=== PATIENT | male | born 1985 ===

== ENCOUNTER 2017-09-25 17:36 | Inpatient (IN) | payer SELFPAY ==
[~2017-09-25 17:36] MED LIST: ISOVUE-370 76%-LOCM 1 ML ONE
[2017-09-25] MEDS ORDERED: Morphine 4 MG/ML Carpuject ONE ×2 (18:27→18:48)
[2017-09-25] MEDS ORDERED: Ondansetron HCl/PF 4 MG/2 ML Vial ONE (18:27)
--- NOTE | 2017-09-25 18:58 | RAD ---
PORTABLE CHEST ONE VIEW 09/25/17 at 5:16 p.m. HISTORY: Fall. FINDINGS/IMPRESSION: The heart size is normal. The lungs are expanded without focal areas of consolidation, pneumothoraces or pleural effusions. There is a right cervical rib. POS: [facility]
--- NOTE | 2017-09-25 19:06 | CT ---
CT BRAIN WITHOUT CONTRAST 09/25/17 HISTORY: Level II trauma. Headache. FINDINGS: No evidence of acute infarct, hemorrhage, midline shift or abnormal extra-axial fluid collections see n. The ventricular size is normal and the basilar cisterns patent. The bony calvarium is intact. The visualized paranasal sinuses and mastoid air cells are well aerated. There is a focal area of tiny ca lcifications in the right frontal lobe. Underlying mass cannot be excluded. This should be evaluated with a contrast enhanced MRI. IMPRESSION: 1. No CT evidence of acute intracranial process. 2. Further evaluation with MRI is recommended to evaluate the right frontal lobe findings. Report was called over the telephone to ER physician, Dr. Haven Grullon at 6:18 p.m. POS: [facility]
--- NOTE | 2017-09-25 19:08 | CT ---
CT CERVICAL SPINE WITH CORONAL AND SAGITTAL REFORMATIONS: 09/25/17 HISTORY: Level II trauma, neck pain. FINDINGS/IMPRESSION: There is loss of the cervical lordosis with straightening of the cervical spine. No acute fracture or subluxation is identified. POS: [facility]
[2017-09-25 19:11] LABS: #Eosinphils 0.2 thou/uL (0.0-0.7); #Lymphocytes 3.5 thou/uL (1.20-3.40); #Monocytes 0.5 thou/uL (0.11-0.59); %Basophils 0.2 % (0.0-1.0); %Eosinophils 1.5 % (0.0-10.0); %Lymphocytes 22.7 % (21.0-51.0); %Monocytes 3.2 % (0.0-10.0); %Neutrophils 72.4 % (42.0-75.0); Hemoglobin 16.2 g/dL (14.0-18.0); Mean Corpuscular HGB CONC 33.8 g/dL (32.0-36.0); Mean Corpuscular Volume 88.8 fl (80.0-94.0); Mean Platelet Volume 7.1 fL (7.4-10.4); Platelet Count 306 thou/uL (130-400); RBC Distribution Width 11.8 % (11.5-14.5); Red Blood Cell (RBC) Count 5.41 mill/uL (4.70-6.10); White Blood Cell (WBC) Count 15.2 thou/uL (4.8-10.8)
[2017-09-25 19:14] LABS: Bilirubin Negative (Negative); Blood, Urine Negative (Negative); Clarity CLEAR (Clear); Glucose, Urine (Dipstick) Negative (Negative); Leukocyte Negative (Negative); Nitrite Negative (Negative); Protein, Urine (Dipstick) Negative (Neg-Trace); Specific Gravity, Urine 1.024 (1.002-1.036); Urobilinogen 0.2 mg/dL (0.2-1.0); pH, Urine 6.5 (5.0-9.0)
[2017-09-25 19:18] LABS: Prothrombin Time 13.6 SEC (12.0-14.7)
[2017-09-25 19:24] LABS: ALT (SGPT) 43 U/L (8-55); AST (SGOT) 34 U/L (5-34); Albumin 4.2 g/dL (3.5-5.0); Alcohol Less than 10 mg/dL (Less than 10); Alkaline Phosphatase 109 U/L (40-150); Anion Gap 19 mmol/L (10-20); BUN (Urea Nitrogen) 14 mg/dL (8.9-20.6); Bilirubin, Total 0.6 mg/dL (0.2-1.2); Calc. Creatinine Clearance 0 mL/min (70-130); Calcium 9.5 mg/dL (7.8-10.44); Carbon Dioxide 18 mmol/L (22-29); Chloride 105 mmol/L (98-107); Estimated GFR-MDRD Greater than 90; Glucose 108 mg/dL (70-105); Lipase 27 U/L (8-78); Potassium 3.8 mmol/L (3.5-5.1); Protein, Total 8.2 g/dL (6.0-8.3); Sodium 138 mmol/L (136-145)
[2017-09-25] MEDS ORDERED: Adacel (T-DAP) 0.5 ML VIAL ONE (19:30)
--- NOTE | 2017-09-25 19:32 | CT ---
CT FACIAL BONES WITH CORONAL AND SAGITTAL REFORMATIONS: 09/25/17 HISTORY: Fall. Mandibular pain. FINDINGS: There is are multiple mandibular fractures. These include the right c ondylar neck. The right mandibular condyle is medially displaced and medially dislocated from the tem poromandibular joint space. On the left side, there is a ramus fracture with medial displacement of t he distal/inferior fragment. There is a displaced fracture involving left parasymphyseal region. Ther e is overlapping of the fracture fragments of the anterior aspect of the mandible. The remainder of the facial bones are otherwise intact. No air fluid levels are seen in the paranasal sinuses. IMPRESSION: Multiple mandibular fractures as discussed above. Discussed over the telephone with ER physician, Dr. Haven Grullon at 6:36 p.m. POS: [facility]
--- NOTE | 2017-09-25 19:48 | CT ---
CT CHEST WITH IV CONTRAST CT ABDOMEN WITH IV CONTRAST CT PELVIS WITH IV CONTRAST CORONAL AND SAGITTAL REFORMATIONS OF THE THORACOLUMBAR SPINE 09/25/17 HISTORY: Level II trauma. FINDINGS: There is no mediastinal hematoma or intimal flap in the aorta seen to suggest aortic transection. No pleural or pericardial effusions are seen. No pneumothoraces or pulmonary contusions are identified. There are dependent changes in the posterior lung bases. A subfissural 4 mm nodule is seen in the lef t. No free air or free fluid is noted in the abdomen or pelvis. The liver, spleen, pancreas, adrenal gl ands, kidneys, gallbladder and urinary bladder appear intact. Absence of oral contrast reduces the se nsitivity of exam for evaluation of bowel. No acute fracture or subluxation seen in the thoracolumbar spine. There are bilateral pars articularis defects at L4 and L5 levels. IMPRESSION: No CT evidence of acute intrathoracic or solid organ injury. Discussed over the telephone with ER physician, Dr. Haven Grullon at 6:48 p.m. POS: [facility]
--- NOTE | 2017-09-25 19:49 | RAD ---
LEFT KNEE FOUR VIEWS: 09/25/17 HISTORY: Fall. Left knee pain. FINDINGS/IMPRESSION: No acute fracture or dislocation seen. POS: [facility]
--- NOTE | 2017-09-25 19:54 | RAD ---
LEFT LEG TWO VIEWS: 09/25/17 HISTORY: Fall. Left leg pain. FINDINGS/IMPRESSION: The left tibia and fibula are intact. POS: [facility]
[2017-09-25] MEDS ORDERED: Bacitracin Zinc 1 Packet ONE (20:04)
--- NOTE | 2017-09-25 20:56 | RAD ---
LEFT HAND THREE VIEWS: 09/25/17 HISTORY: Trauma. Left hand pain. FINDINGS/IMPRESSION: No acute fracture or dislocation is identified. POS: [facility]
[2017-09-25] MEDS ORDERED: Dextrose 50% Abboject 50 ML SYRINGE SLOW IVP PRN (21:44)
[2017-09-25] MEDS ORDERED: Morphine 4 MG/ML Carpuject IVP PRN (21:44)
[2017-09-25] MEDS ORDERED: hydrALAZINE 20 MG/ML VIAL SLOW IVP PRN (21:44)
[2017-09-25] MEDS ORDERED: Ondansetron HCl/PF 4 MG/2 ML Vial IVP PRN (21:44)
[2017-09-25] MEDS ORDERED: Morphine 2 MG/ML SYRINGE IVP PRN (21:44)
[2017-09-25] MEDS ORDERED: HumaLOG 300 UNITS/3 ML VIAL SC PRN (21:44)
[2017-09-25] MEDS ORDERED: Promethazine HCl 25 MG/ML VIAL IM PRN (21:44)
[2017-09-25] MEDS ORDERED: Dextrose 5% in Water 1,000 ML IV PRN (21:44)
[2017-09-25] MEDS ORDERED: Chlorhexidine Gluconate 15 ML UDCUP SSP SCH (22:00)
[2017-09-25] MEDS ORDERED: Famotidine/PF 20 mg/2ml Vial SLOW IVP SCH (22:00)
[2017-09-25 22:11] VITALS: BMI 31.8
[2017-09-25] MEDS: Clindamycin/D5W 900 MG in Premix Bag 1 BAG IVPB SCH (22:21)
[2017-09-25] MEDS: Sodium Chloride 0.9% 1,000 ML IV SCH (22:22)
[2017-09-25] MEDS: Ketorolac Tromethamine 30 MG/ML VIAL IVP SCH (23:35)
[2017-09-25] MEDS: Acetaminophen 1,000 MG in Premix Bag 1 BAG IVPB SCH (23:35)
--- NOTE | 2017-09-26 01:11 | HP ---
History and physical for level 2 trauma activation. ATTENDING PHYSICIAN: Dr. Cary. CONSULTING PHYSICIAN: Dr. Beth for oral surgery. CHIEF COMPLAINT: Evaluation status post fall. HISTORY OF PRESENT ILLNESS: A 32-year-old male presenting to the ED complaining fall occurred just p rior to arrival. 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 Patient landed on his chin and hit his head as well, fo llowing a fall off scaffolding that fell on top of the patient. He is unable to recall some of the e vents of the accident, so it was positive LOC. Patient complains of pain to the head, chest, knees. GCS 15 on arrival as per the ER doctor. Denies any abdominal pain. He is unknown of tetanus shot. He will be given 1 tonight. PAST MEDICAL HISTORY: None. MEDICATIONS: No medications were taken. ALLERGIES: No known drug allergies. SOCIAL HISTORY: He denies any alcohol, drugs, or tobacco use. PHYSICAL EXAMINATION: VITAL SIGNS: Blood pressure 149/96, heart rate of 96, respiration rate of 20, pain 8/10, and 98% on room air. HEENT: He is normocephalic, does have a scalp hematoma on the occipital area. He has gotten a lag t o the midline of the chin. Pupils equal, round, reactive. No JVD, no masses. Trachea is midline. Cervical collar is in place. RESPIRATORY: Clear bilaterally, on the chest noted to have abrasions and bruising to the left side o f the chest with tenderness upon palpation. Right side is void of any tenderness. CARDIOVASCULAR: S1, S2, regular rate and rhythm. ABDOMEN: Soft, nontender, nondistended. BACK: Unremarkable. EXTREMITIES: Left upper extremities, hand tenderness to the thenar prominence, otherwise other pulse s are intact bilaterally radially. Full range of motion of the shoulder and elbow joints right lion d to avoid any tenderness or injury. Lower extremities, he has got abrasions to the left knee. Pass zheng range of motion was intact without tenderness. NEUROLOGIC: GCS of 15. Alert and oriented x3. RADIOLOGIC FINDINGS: CT of the C-spine is negative for fractures. CT of the brain did note no acute intracranial process, but some tiny calcifications on the right frontal lobe. Radiologist recommend ing contrast enhanced MRI to evaluate the right frontal lobe areas. Nonemergent finding knee x-ray v oid of injury. Facial bone showed multiple mandibular fractures. CT chest, abdomen, and pelvis show ed no injury of acute intrathoracic or solid-organ nature. LABORATORY DATA: CBC showed WBC 15.2, hemoglobin of 16.2, hematocrit 48.1, platelet count 306. Coag s 13.6, INR 1. Chemistry: Sodium of 138, potassium 3.8, chloride 105, bicarbonate 18, BUN 14, creat inine 0.80, glucose 108. findings, alcohol is less than 10. ASSESSMENT AND PLAN: 1. Status post fall, greater than 10-feet. 2. Multiple mandibular fractures displaced. 3. Laceration to the chin. 4. Abrasion, main laceration to the left knee. 5. Chest contusion to the left. 6. Concussion. 7. Acute traumatic pain. PLAN: We will admit the patient to the surgical floor. We will consult Oral Surgery for mandibular fracture and await their recommendations. We will start patient on clindamycin prophylactically. Ke ep the patient n.p.o., continue with IV fluids, manage his pain with IV analgesics at this time. Ini tiate deep venous thrombosis and gastritis prophylaxis inappropriate. Patient also to have hand x-ra y that will be pending. The patient was discussed with Dr. Cary and agrees with the above plan.
[2017-09-26 04:23] LABS: #Monocytes 0.7 thou/uL (0.11-0.59); %Eosinophils 0.3 % (0.0-10.0); %Lymphocytes 20.5 % (21.0-51.0); %Monocytes 6.9 % (0.0-10.0); %Neutrophils 72.2 % (42.0-75.0); Hemoglobin 14.5 g/dL (14.0-18.0); Mean Corpuscular HGB CONC 33.7 g/dL (32.0-36.0); Mean Corpuscular Hemoglobin 30.1 pg (27.0-31.0); Mean Corpuscular Volume 89.2 fl (80.0-94.0); Mean Platelet Volume 6.9 fL (7.4-10.4); Platelet Count 286 thou/uL (130-400); RBC Distribution Width 11.9 % (11.5-14.5); Red Blood Cell (RBC) Count 4.83 mill/uL (4.70-6.10); White Blood Cell (WBC) Count 9.7 thou/uL (4.8-10.8)
[2017-09-26 04:28] LABS: Anion Gap 14 mmol/L (10-20); BUN (Urea Nitrogen) 11 mg/dL (8.9-20.6); Calc. Creatinine Clearance 145 mL/min (70-130); Calcium 8.7 mg/dL (7.8-10.44); Carbon Dioxide 24 mmol/L (22-29); Chloride 106 mmol/L (98-107); Estimated GFR-MDRD Greater than 90; Glucose 104 mg/dL (70-105); Potassium 3.9 mmol/L (3.5-5.1); Sodium 140 mmol/L (136-145)
[2017-09-26] MEDS: Ketorolac Tromethamine 30 MG/ML VIAL IVP SCH ×3 (05:59→19:16)
[2017-09-26] MEDS: Acetaminophen 1,000 MG in Premix Bag 1 BAG IVPB SCH (06:00)
[2017-09-26] MEDS: Clindamycin/D5W 900 MG in Premix Bag 1 BAG IVPB SCH ×2 (06:00→18:05)
[2017-09-26] MEDS: Sodium Chloride 0.9% 1,000 ML IV SCH ×2 (06:01→18:05)
--- NOTE | 2017-09-26 06:49 | CON ---
DATE OF CONSULTATION: 09/26/2017 REASON FOR CONSULTATION: Mandible fractures. ADMITTING PHYSICIAN: Dr. Cary. CHIEF COMPLAINT: Jaw pain. 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 The patient did have positive loss of consciousness. He landed on his chin, also feels like he hit his head. A CT scan was done i n the ER, had a negative CT head, also negative CT of the C-spine. He did have multiple mandible fra ctures on the CT scan for which I was consulted. Currently, he does complain of lip and chin numbnes s bilaterally in the mandible, malocclusion and jaw pain. He has no difficulty swallowing or breathi ng. PAST MEDICAL HISTORY: None. MEDICATIONS: He is on clindamycin IV and Peridex currently. ALLERGIES: He has no known drug allergies. SOCIAL HISTORY: He denies alcohol, tobacco or drug use. 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 PHYSICAL EXAMINATION: VITAL SIGNS: Patient's vital signs are stable. He is afebrile currently. HEENT: His pupils are equal, round, and reactive to light and accommodation. He has a small hematom a in the occipital area. His extraocular movements are intact. His nasal cavity is patent bilateral ly. There is no septal hematoma. No crepitus of facial bones, nasal bones, or orbital rims. There is no enophthalmos. His maxilla appears stable. His mandible is severely broken with an open fractu re at the midline. He has a gross anterior open bite and large step defect of the mandible in the mi dline. His teeth appear grossly intact. He has a laceration of the chin prominence approximately 2- 3 cm, it is hemostatic. Intraorally, he does have vestibular laceration extending to the fracture si te at the mandibular symphysis. He does have bilateral V3 paraesthesia. Facial nerves are intact. His dentition is fair. Poor oral hygiene. IMAGING: CT scan of the face shows right mandibular condylar head fracture and a left mandibular sub condylar fracture, condylar neck fracture, also a grossly comminuted and displaced mandibular symphys is fracture is noted. ASSESSMENT: This is a 32-year-old male with mandibular symphysis, right mandibular condylar head fra cture and left mandibular condylar neck fracture, mandibular chin laceration. PLAN: Take the patient to OR for open reduction internal fixation of mandibular symphysis and open v ersus closed reduction of the condylar and subcondylar fractures as well as washout and closure of ma ndibular chin lesion. We will continue clindamycin 900 mg IV q.8. hours, as well as Peridex oral rin se. We will plan for OR today at 2:00. Please keep the patient n.p.o.
--- NOTE | 2017-09-26 07:38 | HP ---
CHIEF COMPLAINT: Fall. 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 Ap parently the wind hit it and it collapsed. He fell 30 feet, striking his chin and knee. He complain s primarily of jaw pain, no loss of consciousness. Denies any shortness of breath. PAST MEDICAL HISTORY: Otherwise, healthy. PAST SURGICAL HISTORY: None. MEDICATIONS: None. ALLERGIES: No known drug allergies. SOCIAL HISTORY: He speaks Green[place]ic, primarily. 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 No tobacco, no alcohol. FAMILY HISTORY: Noncontributory. PHYSICAL EXAMINATION: VITAL SIGNS: Temperature 99.4, pulse 94, blood pressure 117/78. GENERAL: He is a well-developed, well-nourished male. HEENT: He has a laceration, about a 1-1.5 cm laceration on the chin, his jaw is swollen. He has dif ficulty moving the jaw or speaking because of it. NECK: His neck is in a C-collar, but is nontender. CHEST: Lungs are clear. HEART: He has an abrasion on the left chest. It is tender there. ABDOMEN: Soft, nondistended, nontender. EXTREMITIES: He has got an avulsion of skin on his left knee. He has got good pulses. Full range o f motion, normal sensation. His hand x-ray, no fracture. Tibia, fibula x-ray, no fracture. CT of t he brain; tiny calcifications right frontal lobe, but no traumatic injury. Knee film, no fracture or dislocation. Facial bone CT shows multiple mandibular fractures. CT of the chest, abdomen, and pelvis negative. CT of the cervical spine shows some loss of surgical lordosis straightening of the spine, but no frac ture or subluxation identified. A chest x-ray shows a right cervical rib, but otherwise normal. ASSESSMENT: Lacerations abrasions, mandibular fracture. PLAN: Management per Oral Surgery.
[2017-09-26] MEDS: Chlorhexidine Gluconate 15 ML UDCUP SSP SCH ×2 (09:45→18:05)
[2017-09-26] MEDS: Famotidine/PF 20 mg/2ml Vial SLOW IVP SCH ×2 (09:45→22:14)
[2017-09-26] MEDS ORDERED: Oxymetazoline HCl 0.05% ( 15 ML ) ONE ×2 (13:18→13:30)
[2017-09-26] MEDS ORDERED: Fentanyl 100 MCG/2 ML VIAL ONE ×3 (13:18→19:02)
[2017-09-26] MEDS ORDERED: Ondansetron HCl/PF 4 MG/2 ML Vial IVP PRN ×2 (13:31→16:58)
[2017-09-26] MEDS ORDERED: Chlorhexidine Gluconate 15 ML UDCUP SSP ONE ×2 (13:34)
[2017-09-26] MEDS ORDERED: Lidocaine 1% w/Epinephrine 1:200K 30 ML VIAL ONE (13:44)
[2017-09-26] MEDS ORDERED: Glycopyrrolate 0.2 MG/ML 5 ML SYRINGE ONE (13:58)
[2017-09-26] MEDS ORDERED: Dexamethasone 20 MG/5 ML VIAL ONE (13:58)
[2017-09-26] MEDS ORDERED: Ondansetron HCl/PF 4 MG/2 ML Vial ONE (13:58)
[2017-09-26] MEDS ORDERED: Ketorolac Tromethamine 30 MG/ML VIAL ONE (13:58)
[2017-09-26] MEDS ORDERED: PROPOFOL 200 MG/20 ML VIAL ONE (13:58)
[2017-09-26] MEDS ORDERED: Lidocaine 1% PF 5 ML VIAL ONE (13:58)
[2017-09-26] MEDS ORDERED: HYDROmorphone 0.5 MG/0.5 ML SYRINGE ONE ×2 (14:55→16:33)
[2017-09-26] MEDS ORDERED: Acetaminophen 1,000 MG in Premix Bag 1 BAG IVPB SCH (15:00)
--- NOTE | 2017-09-26 15:31 | PRG ---
DATE OF SERVICE: 09/26/2017 ATTENDING PHYSICIAN: Deangelo Truong. This is Marnie Hussein, nurse practitioner dictating a daily progress note for Dr. Deangelo Truong. SUBJECTIVE: The patient is a 32-year-old male, who was admitted in the last p.m. after a fall from scaffolding. He was diagnosed with multiple mandible fractures and facial lacerations. He was admitted to the floor by Trauma Services. [facility] saw the patient and plans on taking him to the OR later today. This morning, he is seen sitting up on the edge of the bed. Pain is partially controlled with pain level being 5/10. OBJECTIVE: VITAL SIGNS: Temperature 97.5, pulse 86, respirations 20, O2 sat 96% room air, and blood pressure 114/73. GENERAL: A 32-year-old man sitting on the side of bed in no acute distress. Nontoxic appearing. HEENT: Swelling and ecchymosis to bilateral jaw and midface. No uncontrolled bleeding, no drainage noted from the nose. PULMONARY: Respirations even unlabored. No acute respiratory distress. CARDIOVASCULAR: Regular rate and rhythm. EXTREMITIES: Moves all extremities well. Cap refill brisk. Dressing in place to left knee. Patient with generalized tenderness to left knee. No uncontrolled bleeding. NEUROLOGIC: GCS 15. Awake, alert, oriented x3. ASSESSMENT: 1. Status post fall from height. 2. Multiple mandible fractures. 3. Acute traumatic pain. PLAN: 1. To OR today with [facility]. 2. N.p.o. until cleared by [facility]. 3. Consult pharmacy for rescheduling IV analgesia. Analgesics should be scheduled to be given not at the same time. 4. Antibiotics per [facility]. The patient was seen and examined with Dr. Truong, attending trauma surgeon, who agrees with the assessment and plan. [facility]ITAL[facility]
[2017-09-26] MEDS ORDERED: Bacitracin Zinc Ointment 30 gm TUBE ONE (16:48)
[2017-09-26] MEDS ORDERED: Promethazine HCl 25 MG/ML VIAL IM PRN (16:58)
[2017-09-26] MEDS ORDERED: Meperidine HCl/PF 25 MG/ML VIAL SLOW IVP PRN (16:58)
[2017-09-26] MEDS ORDERED: Morphine Sulfate 2 MG/ML SYRINGE SLOW IVP PRN (16:58)
[2017-09-26] MEDS ORDERED: HYDROmorphone 2 MG/ML VIAL SLOW IVP PRN (16:58)
[2017-09-26] MEDS ORDERED: Promethazine HCl 25 MG/ML VIAL SLOW IVP PRN (16:58)
[2017-09-26] MEDS ORDERED: Morphine 4 MG/ML Carpuject SLOW IVP PRN (19:06)
[2017-09-26] MEDS ORDERED: Ibuprofen 100 MG/5 ML UDCUP PO PRN (19:07)
[2017-09-26] MEDS ORDERED: Dexamethasone 4 mg/ml Vial SLOW IVP PRN (19:07)
[2017-09-26] MEDS ORDERED: Ondansetron HCl/PF 4 MG/2 ML Vial SLOW IVP PRN (19:09)
[2017-09-26] MEDS ORDERED: Chlorhexidine Gluconate 15 ML UDCUP SSP PRN (19:09)
[2017-09-26] MEDS ORDERED: Dexamethasone 4 mg/ml Vial ONE (19:19)
--- NOTE | 2017-09-26 21:21 | CT ---
CT OF FACE NONCONTRAST 09/26/17 CLINICAL HISTORY: Status post ORIF of mandible. Reference made to CT exam previous day. FINDINGS: There has been interval operative fixation of the mandible with extrinsic metallic hardware traversin g sites of comminuted mandibular fractures. There is near anatomic alignment of the mandibular fractu re sites. There is metallic hardware also traversing the region of the alveolar margin of the maxilla . No evidence of hardware complication identified. There is mild inspissated debris of each maxillary sinus and mild opacification of ethmoid sinuses. There is no additional significant interval detrime ntal change. IMPRESSION: Interval operative fixation of comminuted mandibular fractures. Additional details are described above. POS: [facility]
[2017-09-27] MEDS: Clindamycin/D5W 900 MG in Premix Bag 1 BAG IVPB SCH ×3 (00:28→15:42)
[2017-09-27] MEDS: Hydrocodone-Acetamin 15 ML UDCUP PO PRN ×2 (00:28→14:25)
[2017-09-27] MEDS: D5 1/2 NS w/20 mEq KCL 1,000 ML IV SCH ×2 (01:53→09:32)
[2017-09-27] MEDS ORDERED: FLU VACC QS2017-18 36 mo. & older 0.5 ML SYRINGE IM ONE (09:00)
[2017-09-27 09:22] VITALS: TEMP 98.7
[2017-09-27] MEDS: Famotidine/PF 20 mg/2ml Vial SLOW IVP SCH (09:32)
[2017-09-27 13:39] VITALS: BP 110/70
--- NOTE | 2017-09-27 16:10 | DIS ---
DATE OF ADMISSION: 09/25/2017 DATE OF DISCHARGE: 09/27/2017 ADMITTING PHYSICIAN: Dr. Frank Cary. CONSULTING PHYSICIAN: Dr. Vel Beth REASON FOR HOSPITALIZATION: Fall from scaffolding with facial pain. HOSPITAL DIAGNOSES: 1. Mandibular symphysis fracture. 2. Right mandibular condylar head fracture. 3. Left mandibular condylar neck fracture. 4. Mandibular chin laceration. PROCEDURES: ORIF of facial fractures. DATE OF SURGERY: 09/25/2017 SURGEON: Dr. Vel Beth. Please refer to Dr. Beth's complete operative report for details. DISCHARGE CONDITION: Good. Discharged to home. BRIEF HISTORY OF HOSPITALIZATION: The patient is a 32-year-old male who presented to the ER after a fall from a 10 foot scaffolding at work. Workup in the ED identified multiple mandibular fractures. He was admitted to the hospital by Trauma services. Dr. Beth, ARAM, was consulted. The patient was taken to the operating room the following day for fixation of fractures. He was then managed on the surgical floor. Pain was well controlled and he was able to tolerate a liquid diet. Maxillomandibular fixation device remained in place without any complications. He was seen on postoperative day #1 by RACHELL Cevallos. He was cleared for discharge home to follow up with Dr. Amaro in 2 weeks. He was given prescriptions for analgesia and antibiotics by Dr. Amaro. He is to be on a liquid diet. There is no need for him to follow up with Trauma services. Patient was reviewed with Dr. Truong, attending trauma surgeon, who agrees with the assessment and plan. [facility]
--- NOTE | 2017-09-28 13:54 | OP ---
DATE OF PROCEDURE: 09/26/2017 PREOPERATIVE DIAGNOSES: 1. Mandibular symphysis fracture. 2. Right mandibular condylar fracture. 3. Left mandibular subcondylar fracture. POSTOPERATIVE DIAGNOSES: 1. Mandibular symphysis fracture. 2. Right mandibular condylar fracture. 3. Left mandibular subcondylar fracture. PROCEDURES PERFORMED: 1. Open reduction internal fixation of mandibular symphysis fracture. 2. Closed reduction with maxillomandibular fixation of right mandibular condylar fracture and left m andibular subcondylar fracture. 3. Closure of complex submental laceration approximately 3 cm. ANESTHESIA: General nasoendotracheal anesthesia. 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 DESCRIPTION OF PROCEDURE: The patient was met in the preoperative holding area. Risks, benefits, an d alternatives of the procedure were discussed in detail with the patient and the patient's family. Family member was present to translate. Questions were sought and answered and informed consent was obtained. The patient agreed with the proposed operative plan. He was transferred to the operating room by Anesthesia nursing to the OR table where a safety belt was secured, standard ASA monitor sonia ched, and the patient was noted to have stable vital signs. IV induction by Anesthesia with nasoendo tracheal intubation x1 without complication. Endotracheal tube was secured in a standard head wrap f ashion. The patient was prepped and draped in a sterile fashion. A timeout was performed. We began the procedure by thoroughly suctioning the oropharynx and moistene d Ray-Patrick throat pack was placed. Approximately 15 mL of 1% lidocaine with 1:100,000 epinephrine was administered as a local infiltration along the bilateral mandibular vestibule and symphysis as well as the maxillary vestibules bilaterally. Arch bars were placed from second molar to first molar in t he maxillary arch and first molar to first molar in the mandibular arch with 24 gauge circumdental wi res. Bovie cautery was used for a circumferential vestibular incision with blunt subperiosteal disse ction to expose the symphysis and associated fracture. Comminution was noted at the inferior border with loose bony fragments removed with a hemostat. Bone reduction forcep, a Bridal wire was placed t o help reduce the fracture. Bilateral medial pressure was placed on the patient's angles of the walker ible. Repeatable stable occlusion was obtained and the patient was placed into maxillomandibular fix ation with 24-gauge wires. A Synthes 2.0 6-hole plate was bent to the mandibular symphysis and locki ng and nonlocking bicortical screws were used for fixation of the fracture. The maxillomandibular fi xation was removed. The patient's occlusion was noted to be stable and repeatable. Copious irrigati on of the wounds was performed. The oropharynx was thoroughly suctioned and moistened Ray-Patrick throat pack was removed. Wounds were closed with 3-0 Vicryl interrupted sutures to reapproximate the menta lis muscle as well as a running 3-0 Vicryl for mucosal closure. 3-0 interrupted Vicryl sutures were placed along the submental laceration for reapproximation of the deep and subcutaneous tissues and a running 5-0 plain gut was placed for skin closure. The patient was placed back into maxillomandibula r fixation and this completed the procedure. The patient was extubated in the room and returned to [facility] PACU in stable condition. FLUIDS: See anesthesia records. ESTIMATED BLOOD LOSS: 100 mL DRAINS: None. SPECIMENS: None. COUNTS: Needle and sponge count verified as correct. IMPLANTS: 6-hole 2 mm locking Synthes plate with four associated 2.0 mm bicortical screws, 2 locking and 2 nonlocking. COMPLICATIONS: None.
== END 2017-09-27 17:56 | disposition home or self-care (01) | DRG 131 ==
LOC: ERS 17:36 → SURG A 21:34
PROVIDERS: ADMIT Surgery; ATTEND Surgery
PROC: 0NST04Z Reposition Right Mandible with Internal Fixation Device, Open Approach (ICD-10-PCS; principal; 2017-09-26)
PROC: 0NSV04Z Reposition Left Mandible with Internal Fixation Device, Open Approach (ICD-10-PCS; 2017-09-26)
PROC: 0JQ13ZZ Repair Face Subcutaneous Tissue and Fascia, Percutaneous Approach (ICD-10-PCS; 2017-09-26)
DX: S02.66XB Fracture of symphysis of mandible, initial encounter for open fracture (principal); S06.0X9A Concussion with loss of consciousness of unspecified duration, initial encounter; S81.012A Laceration without foreign body, left knee, initial encounter; S20.212A Contusion of left front wall of thorax, initial encounter; S02.611A Fracture of condylar process of right mandible, initial encounter for closed fracture; S02.622A Fracture of subcondylar process of left mandible, initial encounter for closed fracture; W12.XXXA Fall on and from scaffolding, initial encounter; Y93.H3 Activity, building and construction; Y92.69 Other specified industrial and construction area as the place of occurrence of the external cause
CPT/HCPCS: 36415; 36416; 70450; 70486; 71045; 71260; 72125; 74177; 80048; 80053; 80307; 81003; 83690; 85025; 85610; 90471; 90682; 90715; 96361; 96374; C1713; G0008; G0390; G8978-GP-CK; G8979-GP-CJ; G8987-GO-CK; G8988-GO-CI; J0131; J1100; J1170; J1885; J2001; J2270; J2405; J2704; J3010; J3490; Q2036; S0028